=== PATIENT | female | born 1990 | race Two or more races ===

== ENCOUNTER 2016-10-25 14:15 | Emergency (ER) | payer BC, OTHER, SELFPAY ==
[~2016-10-25] VITALS: Ht 162.6 cm; Wt 72.7 kg
--- NOTE | 2016-10-25 15:57 | REP ---
REASON: Trauma. COMPARISON: None. TECHNIQUE: 4.5 mm contiguous transaxial sections were obtained from the skull base to the cerebral convexities with thin cuts through the posterior fossa without the administration of intravenous contrast. FINDINGS: The ventricles and sulci are consistent with the patient's age. There are no extra-axial fluid collections. There is no mass effect. The deep cerebral white matter is consistent with the patient's age. The orbital and petrous structures, cerebellopontine angles, and posterior fossa are unremarkable. The sella turcica, cavernous, and paracavernous structures are essentially unremarkable. The visualized portions of the paranasal sinuses and mastoid air cells are clear. Images of the skull base show no gross abnormality. IMPRESSION: Essentially unremarkable CT examination of the brain. Signed by Abram Linn DO 10/25/2016 04:24 P
--- NOTE | 2016-10-25 15:59 | REP ---
REASON: Pain in the neck after trauma. COMPARISON: None. Vertebral body height and alignment is within normal limits. The disc spaces are symmetric and well maintained. The facet joints are well aligned bilaterally. There is no evidence of an acute cervical spine fracture. There is no abnormal paraspinal soft tissue swelling. IMPRESSION: Unremarkable exam. Signed by Abram Linn DO 10/25/2016 04:24 P
[2016-10-25 19:06] VITALS: BP 117/78
== END 2016-10-25 19:08 | disposition home or self-care (01) ==
LOC: M ED 18:13
DX: T76.11XA Adult physical abuse, suspected, initial encounter (principal); X58.XXXA Exposure to other specified factors, initial encounter; Y92.410 Unspecified street and highway as the place of occurrence of the external cause; Y93.9 Activity, unspecified; Y99.8 Other external cause status; F17.200 Nicotine dependence, unspecified, uncomplicated; Z88.0 Allergy status to penicillin

== ENCOUNTER → 2017-03-22 | Outpatient (REF) | payer OTHER | LOC: M SFHCLERA 16:05 | PROVIDERS: ATTEND Nurse Practitioner Family | DX: N89.8 Other specified noninflammatory disorders of vagina (principal) ==

== ENCOUNTER → 2017-11-13 | Outpatient (REF) | payer OTHER ==
[2017-11-13 17:45] LABS: BASO % 0.3 % (0.0-1.0); EOS # 0.2 10^3/uL (0.0-0.50); HEMATOCRIT 34.2 % (36.0-47.0); HEMOGLOBIN 10.5 g/dl (12.0-15.5); IMMATURE GRANULOCYTE % 0.3 % (0-3.0); LYMPH # 2.2 10^3/uL (1.5-6.5); LYMPH % 22.9 % (24.0-44.0); MEAN CORPUSCULAR HEMOGLOBIN 24.9 pg (27.0-33.0); MEAN CORPUSCULAR HGB CONC 30.7 g/dl (32.0-36.5); MEAN CORPUSCULAR VOLUME 81.2 fl (80.0-96.0); MONO # 0.8 10^3/uL (0.0-0.8); NEUTROPHILS # 6.3 10^3/uL (1.8-7.7); NEUTROPHILS % 66.5 % (36.0-66.0); PLATELET COUNT, AUTOMATED 226 10^3/uL (150-450); RED BLOOD COUNT 4.21 10^6/uL (4.00-5.40); RED CELL DISTRIBUTION WIDTH 14.9 % (11.5-14.5); WHITE BLOOD COUNT 9.4 10^3/uL (4.0-10.0)
[2017-11-13 18:07] LABS: ESTIMATED AVERAGE GLUCOSE 85 MG/DL (60-110); HEMOGLOBIN A1c 4.6 %
[2017-11-13 18:08] LABS: ALBUMIN 3.7 GM/DL (3.2-5.2); ALBUMIN/GLOBULIN RATIO 1.12 (1.00-1.93); ALKALINE PHOSPHATASE 58 U/L (45-117); ALT/SGPT 15 U/L (12-78); ANION GAP 12 MEQ/L (8-16); AST/SGOT 16 U/L (7-37); BILIRUBIN,TOTAL 0.2 MG/DL (0.2-1.0); BLOOD UREA NITROGEN 10 MG/DL (7-18); CALCIUM LEVEL 8.2 MG/DL (8.5-10.1); CARBON DIOXIDE LEVEL 24 MEQ/L (21-32); CHLORIDE LEVEL 105 MEQ/L (98-107); CHOLESTEROL LEVEL 132 MG/DL (<200); CHOLESTEROL RISK RATIO 2.693 (<5); CREATININE FOR GFR 0.67 MG/DL (0.55-1.30); FREE T4 0.88 NG/DL (0.76-1.46); GLOMERULAR FILTRATION RATE > 60.0 (>60); GLUCOSE, FASTING 84 MG/DL (70-100); HDL CHOLESTEROL 49 MG/DL (>40); NON-HDL-C 83 MG/DL; POTASSIUM SERUM 4.2 MEQ/L (3.5-5.1); SODIUM LEVEL 141 MEQ/L (136-145); THYROID STIMULATING HORMONE 0.932 uIU/ML (0.358-3.740); TOTAL 25(OH) VITAMIN D 21.8 NG/ML (30.0-100.0); TRIGLYCERIDES LEVEL 170 MG/DL (<150)
[2017-11-13 18:09] LABS: PTH INTACT 45.8 PG/ML (18.5-88.0); TOTAL T3 71.8 NG/DL (60.0-181.0)
[2017-11-14 10:35] LABS: RETICULOCYTE # 66.9 10^9/L (17-77); RETICULOCYTE % 1.6 % (0.5-1.5)
[2017-11-14 10:36] LABS: RETIC HEMOGLOBIN EQUIVALENT 28.4 pg (24-36)
[2017-11-14 10:42] LABS: FERRITIN 6 NG/ML (8-252); IRON (FE) 22 UG/DL (50-170); PERCENT SATURATION 5.1 % (13.2-45.0); TOTAL IRON BINDING CAPACITY 429 UG/DL (250-450)
== END ==
LOC: M SFHCPLAZ 16:11
DX: F32.9 Major depressive disorder, single episode, unspecified (principal); E03.9 Hypothyroidism, unspecified; Z13.220 Encounter for screening for lipoid disorders; E55.9 Vitamin D deficiency, unspecified

== ENCOUNTER 2018-12-15 21:05 | Emergency (ER) | payer OTHER ==
[~2018-12-15] VITALS: Ht 162.6 cm; Wt 80.6 kg
[2018-12-15] MEDS ORDERED: FLUO20CA19 PO (21:13)
[2018-12-15 21:38] LABS: URINE PREG TEST NEGATIVE (NEGATIVE)
[2018-12-15 21:51] LABS: APPEARANCE, URINE CLEAR (CLEAR); BACTERIA, URINE AUTO NEGATIVE (NEGATIVE); BILIRUBIN, URINE AUTO NEGATIVE (NEGATIVE); BLOOD, URINE BLOOD NEGATIVE (NEGATIVE); COLOR, URINE YELLOW (YELLOW); GLUCOSE, URINE (UA) AUTO NEGATIVE (NEGATIVE); KETONE, URINE AUTO NEGATIVE (NEGATIVE); LEUKOCYTE ESTERASE, URINE AUTO NEGATIVE (NEGATIVE); NITRITE, URINE AUTO NEGATIVE (NEGATIVE); PROTEIN, URINE AUTO NEGATIVE (NEGATIVE); RBC, URINE AUTO 2 /HPF (0-3); SPECIFIC GRAVITY URINE AUTO 1.014 (1.002-1.035); SQUAMOUS EPITHELIAL CELL UR AU 0 /HPF (0-6); UROBILINOGEN, URINE AUTO 0.2 mg/dL (0.0-2.0); WBC, URINE AUTO 0 /HPF (0-3)
[2018-12-15 23:32] LABS: CHLAMYDIA DNA AMPLIFICATION NEGATIVE (NEGATIVE); GC DNA AMPLIFICATION NEGATIVE (NEGATIVE)
[2018-12-16 00:19] LABS: CHLAMYDIA DNA AMPLIFICATION NEGATIVE (NEGATIVE); GC DNA AMPLIFICATION NEGATIVE (NEGATIVE)
[2018-12-16] MEDS ORDERED: FLAG500T PO (00:22)
[2018-12-16 00:35] VITALS: BP 107/63
--- NOTE | 2018-12-16 00:39 | REPVR ---
EXAM: US Pelvis Complete, Transabdominal EXAM DATE/TIME: 12/15/2018 11:24 PM CLINICAL HISTORY: 27 years old, female; Pelvic pain; Additional info: Pelvic pain, cramping TECHNIQUE: Imaging protocol: Real-time transabdominal pelvic ultrasound with image documentation. Complete exam. COMPARISON: No relevant prior studies available. FINDINGS: Uterus/cervix: Uterus is unremarkable measuring 8.9 x 5.0 x 5.2 cm. Endometrial stripe is normal measuring 2.4 mm. Right adnexa: The right ovary is unremarkable measuring 3.3 x 7.6 x 1.5 cm. Left adnexa: Left ovary measures 4.3 x 3.0 x 3.3 cm. Hemorrhagic cyst in the left ovary measuring 3.0 x 1.6 x 2.4 cm. Normal vascular flow is seen. No evidence of torsion. Free fluid: Ina fluid in the pelvis likely physiologic. Bladder: Urinary bladder is unremarkable measuring 5.3 x 3.7 x 6.9 cm. IMPRESSION: Hemorrhagic cyst in the left ovary measuring 3.0 x 1.6 x 2.4 cm. No evidence of torsion. Electronically signed by: Denise Rivera On 12/16/2018 00:38:36 AM
== END 2018-12-16 00:40 | disposition home or self-care (01) ==
LOC: M ED 21:05
DX: N83.202 Unspecified ovarian cyst, left side (principal); N76.0 Acute vaginitis; Z88.0 Allergy status to penicillin

== ENCOUNTER 2019-03-02 15:14 | Emergency (ER) | payer OTHER ==
[~2019-03-02] VITALS: Ht 162.6 cm; Wt 85.5 kg
[~2019-03-02 15:14] MED LIST: FLAG500T PO; FLUO20CA19 PO
[2019-03-02 16:33] LABS: AMORPHOUS SEDIMENT SMALL (NEGATIVE); APPEARANCE, URINE CLOUDY (CLEAR); BACTERIA, URINE AUTO NEGATIVE (NEGATIVE); BILIRUBIN, URINE AUTO NEGATIVE (NEGATIVE); BLOOD, URINE BLOOD NEGATIVE (NEGATIVE); COLOR, URINE AMBER (YELLOW); GLUCOSE, URINE (UA) AUTO NEGATIVE (NEGATIVE); KETONE, URINE AUTO NEGATIVE (NEGATIVE); LEUKOCYTE ESTERASE, URINE AUTO NEGATIVE (NEGATIVE); MUCUS, URINE SMALL (NEGATIVE); NITRITE, URINE AUTO NEGATIVE (NEGATIVE); PROTEIN, URINE AUTO NEGATIVE (NEGATIVE); RBC, URINE AUTO 3 /HPF (0-3); SPECIFIC GRAVITY URINE AUTO 1.025 (1.002-1.035); SQUAMOUS EPITHELIAL CELL UR AU 3 /HPF (0-6); UROBILINOGEN, URINE AUTO 0.2 mg/dL (0.0-2.0); WBC, URINE AUTO 0 /HPF (0-3)
[2019-03-02 16:56] LABS: BASO % 0.3 % (0.0-1.0); EOS # 0.2 10^3/uL (0.0-0.5); EOS % 1.6 % (0.0-3.0); HEMATOCRIT 42.9 % (36.0-47.0); HEMOGLOBIN 13.9 g/dl (12.0-15.5); LYMPH # 2.1 10^3/uL (1.5-5.0); LYMPH % 18.6 % (24.0-44.0); MEAN CORPUSCULAR HEMOGLOBIN 28.9 pg (27.0-33.0); MEAN CORPUSCULAR HGB CONC 32.4 g/dl (32.0-36.5); MEAN CORPUSCULAR VOLUME 89.2 fl (80.0-96.0); MONO # 0.8 10^3/uL (0.0-0.8); MONO % 7.5 % (0.0-5.0); NEUTROPHILS # 7.9 10^3/uL (1.5-8.5); NEUTROPHILS % 71.5 % (36.0-66.0); PLATELET COUNT, AUTOMATED 265 10^3/uL (150-450); RED BLOOD COUNT 4.81 10^6/uL (4.00-5.40); WHITE BLOOD COUNT 11.1 10^3/uL (4.0-10.0)
[2019-03-02 16:58] LABS: BLOOD UREA NITROGEN 14 MG/DL (7-18); CARBON DIOXIDE LEVEL 28 MEQ/L (21-32); CHLORIDE LEVEL 107 MEQ/L (98-107); GLOMERULAR FILTRATION RATE > 60.0 (>60); GLUCOSE, FASTING 89 MG/DL (70-100); HCG, SERUM QUANTITATIVE < 1.0 MIU/ML; POTASSIUM SERUM 4.6 MEQ/L (3.5-5.1); SODIUM LEVEL 141 MEQ/L (136-145)
[2019-03-02 18:05] VITALS: BP 125/72
--- NOTE | 2019-03-02 18:28 | REPVR ---
PROCEDURE INFORMATION: Exam: US Pelvis Complete, Transabdominal Exam date and time: 03/02/2019 5:49 PM Clinical history: 28 years old, female; Pelvic pain; Additional info: Pelvic pain, HX of ovarian cysts TECHNIQUE: Imaging protocol: Real-time transabdominal pelvic ultrasound with image documentation. Complete exam. COMPARISON: US PELVIC NON-OB COMPLETE 12/15/2018 11:21 PM FINDINGS: Uterus measures 8.9 x 4.9 x 6.4 cm in size. No focal uterine mass. Endometrial stripe appears homogeneous, measuring 9 mm in thickness. Right ovary measures 5.2 x 2.8 x 3.9 cm in size. Right ovary demonstrates a thickwalled hyperechoic structure measuring 2.2 x 2.2 x 3.1 cm Left ovary measures 3.2 x 2.8 x 2.9 cm in size. Simple fluid 18 mm cyst. Doppler flow is documented in both ovaries. No abnormal volume of free fluid within the pelvis. IMPRESSION: Complex right ovarian lesion measuring 3.1 cm with cystic component centrally and hyperechoic rim. This may represent a hemorrhagic or involuting cyst. No evidence of ovarian torsion. Unremarkable appearance of the uterus and left ovary with no bleeding of a probable benign left ovarian follicle Electronically signed by: Jeremi Allison On 03/02/2019 18:28:39 PM
--- NOTE | 2019-03-03 16:17 | ED PDOC ---
Post-Departure Follow-Up ft fransisca bell faxed formal report of pelvic us for fu Fabrizio Fishman MD Mar 03, 2019 16:17
== END 2019-03-02 18:52 | disposition home or self-care (01) ==
LOC: M ED 15:14
DX: N83.292 Other ovarian cyst, left side (principal); Z88.0 Allergy status to penicillin